=== PATIENT | male | born 1990 | race Caucasian/White ===

== ENCOUNTER 2019-02-06 21:39 | Emergency (ER) | payer OTHER, MEDICAID ==
[2019-02-06] MEDS ORDERED: LEVETIRACETAM 1000 MG/NACL-ISO 1,000 MG/100 ML RTUPB IV ONE (22:14)
[2019-02-06] MEDS ORDERED: DIPH/PERTUSS(ACELL)/TETANUS VAC/PF 0.5 ML SYR (>=10YO) IM ONE (22:18)
[2019-02-06] MEDS ORDERED: METOCLOPRAMIDE HCL INJ/PF 10 MG/2 ML SDV IV ONE (22:20)
--- NOTE | 2019-02-06 22:21 | ER Document Report ---
ED Seizure - General Chief Complaint: Seizure Stated Complaint: SEIZURE Time Seen by Provider: 02/06/19 22:06 Primary Care Provider: [facility] [Provider Group] - Follow up as needed LAURENT BUSTILLO MD [ACTIVE STAFF] - Follow up in 3-5 days Notes: Patient is a 28-year-old male that comes to the emergency department for chief complaint of seizure. Reportedly patient was at work, when outside to take a b reak, and then was noticed by his coworkers to be having a seizure. EMS was called and patient was transported, EMS reported patient to be postictal. Patient admits that he had a seizure on 2 different occasions within the past 2 weeks but he was not evaluated for them at that time. No history of seizures previous to that. He also admits to drinking alcohol daily. Dad is at bedside and states that all morning patient was also throwing up. Patient states he does not remember what happened at work. He reports mild nausea but denies headache. Patient does not have any past medical history reported, takes no daily medications, denies recreational drugs. Patient's tetanus is not up-to-da te on 5 years. - Related Data Allergies/Adverse Reactions: No Known Allergies Allergy (Verified 02/20/16 15:12) Past Medical History - General Information source: Patient, Parent - Social History Smoking Status: Current Every Day Smoker Frequency of alcohol use: Heavy Drug Abuse: None Lives with: Family Family History: Reviewed & Not Pertinent Patient has suicidal ideation: No Patient has homicidal ideation: No - Immunizations Immunizations up to date: Yes Hx Diphtheria, Pertussis, Tetanus Vaccination: Yes Review of Systems - Review of Systems Constitutional: No symptoms reported EENT: No symptoms reported Cardiovascular: No symptoms reported Respiratory: No symptoms reported Gastrointestinal: See HPI Genitourinary: No symptoms reported Male Genitourinary: No symptoms reported Musculoskeletal: See HPI Skin: See HPI Hematologic/Lymphatic: No symptoms reported Neurological/Psychological: See HPI Physical Exam - Vital signs Vitals: Temp Resp BP Pulse Ox 98.1 F 18 158/96 H 96 02/06/19 22:01 02/06/19 22:01 02/06/19 22:01 02/06/19 22:01 - Notes Notes: GENERAL: Alert, interacts well. No acute distress. HEAD: Normocephalic, atraumatic. EYES: Pupils equal, round, and reactive to light. Extraocular movements intact. ENT: Oral mucosa moist, tongue midline with a tiny superficial bite omkar over the left anterior aspect. No current bleeding. Oropharynx unremarkable. Airway patent. Nares patent, no nasal septal hematoma, TM's intact. NECK: Full range of motion. Supple. Trachea midline. LUNGS: Clear to auscultation bilaterally, no wheezes, rales, or rhonchi. No respiratory distress. HEART: Regular rate and rhythm. No murmur ABDOMEN: Soft, non-tender. Non-distended. Bowel sounds present in all 4 quadrants. GENITOURINARY: Deferred EXTREMITIES: Small abrasion over the right elbow and proximal forearm. No severe bony tenderness, no deformity, range of motion at all joints normal, normal distal neurovascular exam and strength. BACK: no cervical, thoracic, lumbar midline tenderness. No saddle anesthesia, normal distal neurovascular exam. NEUROLOGICAL: Alert and oriented x3. Normal speech. Cranial nerves II through XII grossly intact. PSYCH: Normal affect, normal mood. SKIN: Warm, dry, normal turgor. No rashes or lesions noted. Course - Re-evaluation Re-evalutation: 02/06/19 22:35 Patient's EKG is somewhat strange, there are T wave depressions anteriorly and laterally, there are elevated ST segments anteriorly as well. Spoke to Dr. Dubose, he will review the EKG and call back. 02/06/19 23:01 Dr. Dubose has reviewed the EKG image. His only recommendation is outpatient cardiology follow-up with possible stress testing at that point, this does not appear to be Brugada or have any acute abnormality that needs to be assessed at this time. I did discuss this with patient and family, they state they will accept cardiology referral and take him there. CAT scan of the head negative, chest x-ray unremarkable, CBC nonspecific. Alcohol negative. Chemistry shows elevated AST and bilirubin consistent with alcohol abuse, patient has no abdominal pain on evaluation, did not vomit. Patient has been eating and drinking without any difficulty or complaints. Patient is well-appearing on evaluation other than the small laceration of the tongue. His examination is normal otherwise. No additional complaints on reevaluations. Magnesium is low at 1.3, this will be replaced. Patient was given 1000 mg of Keppra IV upon arrival as well. 02/07/19 I had a long conversation with patient and parents. Patient states she has not had alcohol in 48 hours, he denies withdrawal symptoms, he understands that alcohol lowers his seizure threshold and he is much more likely to have one if he continues to drink in addition to discussing how his liver functioning test including LFTs and bilirubin are elevated because of his alcohol abuse. He states that he does not need to be placed in detox and he would prefer to go home. He states he has quit before. Parents are supportive of him and this w ith no alternative suggestion or preference. Patient is not tachycardic, he is alert, smiling, well-appearing, he is not having tremors, he does not appear to be having any withdrawal at this time. As result I do not suspect that his seizure today was from withdrawals. I discussed the patient and disposition with Dr. Lyle. Because patient has had multiple seizures now he will be placed on Keppra, he will be given magnesium supplement, and he will be referred to neurology along with the cardiology referral. Patient already does not drive. Discussed seizure precautions. Discussed return precautions. Patient and mother state understanding and agreement. Stable at time of discharge. - Vital Signs Vital signs: Temp Pulse Resp BP Pulse Ox 98.3 F 15 150/99 H 100 02/07/19 02:19 02/07/19 02:19 02/07/19 02:19 02/07/19 02:19 - Laboratory Result Diagrams: 02/06/19 21:55 02/06/19 21:55 Laboratory results interpreted by me: 02/06/19 02/06/19 21:55 21:55 MCH 33.8 H RDW 14.2 H Plt Count 86 L Lymph % (Auto) 10.5 L Chloride 93 L Calcium 10.7 H Magnesium 1.3 L Total Bilirubin 1.6 H AST 300 H Total Protein 8.9 H Albumin 5.2 H Discharge - Discharge Clinical Impression: Seizure, Hypomagnesemia Elbow contusion Qualifiers: Encounter type: initial encounter Laterality: right Qualified Code(s): S50.01XA - Contusion of right elbow, initial encounter Vomiting Qualifiers: Vomiting type: unspecified Vomiting Intractability: non-intractable Nausea presence: unspecified Qualified Code(s): R11.10 - Vomiting, unspecified Condition: Stable Disposition: HOME, SELF-CARE Additional Instructions: Your CAT scan of the head was normal. Your magnesium has started to be supplemented, take the magnesium as prescribed, take the antiseizure medication, follow-up with the neurology referral listed below, call for your appointment. Your EKG was abnormal today, I spoke with Dr. Bustillo, please see the referral for close follow-up with him as well. You must stop drinking alcohol, this is damaging your body and also makes you much more likely to have a seizure. Consider follow-up with the [facility] referral for assistance in regards to this. Start with bland food, take nausea medication if needed. Return to the emergency department for any concerning or worsening symptoms including repeat seizures, uncontrolled vomiting, or something is not right. Former[facility] [address] [place] [id number] Prescriptions: Levetiracetam [Keppra 500 mg Tablet] 500 mg PO Q12 #60 tablet Magnesium Oxide 250 mg PO DAILY #30 tablet Ondansetron [Zofran Odt 4 mg Tablet] 1 - 2 tab PO Q4H PRN #15 tab.rapdis PRN Reason: For Nausea/Vomiting Forms: Parent Work Note Referrals: LAURENT BUSTILLO MD [ACTIVE STAFF] - Follow up in 3-5 days [facility] [Provider Group] - Follow up as needed
[2019-02-06 22:29] LABS: ALBUMIN 5.2 g/dL (3.5-5.0); ALKALINE PHOSPHATASE 49 U/L (38-126); ANION GAP 17 (5-19); ASPARTATE AMINO TRANSFERASE 300 U/L (17-59); BILIRUBIN,DIRECT 0.3 mg/dL (0.0-0.4); BILIRUBIN,TOTAL 1.6 mg/dL (0.2-1.3); BLOOD UREA NITROGEN 8 mg/dL (7-20); CALCIUM 10.7 mg/dL (8.4-10.2); CARBON DIOXIDE 28 mmol/L (22-30); CHLORIDE 93 mmol/L (98-107); GLUCOSE 110 mg/dL (75-110); POTASSIUM 3.8 mmol/L (3.6-5.0); TOTAL PROTEIN 8.9 g/dL (6.3-8.2)
[2019-02-06 22:30] LABS: ABSOLUTE LYMPHOCYTES (AUTO) 0.5 10^3/uL (0.5-4.7); ABSOLUTE MONOCYTES (AUTO) 0.6 10^3/uL (0.1-1.4); ABSOLUTE NEUT (AUTO) 3.8 10^3/uL (1.7-8.2); BASOPHILS % (AUTO) 0.8 % (0-2); EOSINOPHILS % (AUTO) 0.3 % (0-6); HEMATOCRIT 46.3 % (37.9-51.0); HEMOGLOBIN 16.2 g/dL (13.5-17.0); LYMPHOCYTES % (AUTO) 10.5 % (13-45); MEAN CORPUSCULAR HEMOGLOBIN 33.8 pg (27.0-33.4); MEAN CORPUSCULAR HGB CONC 34.9 g/dL (32.0-36.0); MEAN CORPUSCULAR VOLUME 97 fl (80-97); MONOCYTES % (AUTO) 11.9 % (3-13); RED BLOOD COUNT 4.79 10^6/uL (4.35-5.55); RED CELL DISTRIBUTION WIDTH 14.2 % (11.5-14.0); SEGMENTED NEUTROPHILS % (AUTO) 76.5 % (42-78); TOTAL CELLS COUNTED % (AUTO) 100 %
[2019-02-06 22:51] LABS: PLATELET COUNT 86 10^3/uL (150-450)
--- NOTE | 2019-02-06 23:28 | RADIOLOGY REPORT (SQ) ---
EXAM DESCRIPTION: XR CHEST 1 VIEW COMPLETED DATE/TME: 02/06/2019 22:14 CLINICAL HISTORY: 28 years Male, persistent vomiting, passed out or seizure COMPARISON: None. NUMBER OF VIEWS/TECHNIQUE: 1/AP FINDINGS: Adequate lung volume, clear parenchyma, normal cardiac silhouette, and intact bony thorax. IMPRESSION: No acute cardiopulmonary findings.
--- NOTE | 2019-02-06 23:29 | RADIOLOGY REPORT (SQ) ---
4 VIEWS OF RIGHT ELBOW EXAM DATE: 02/06/2019 10:18 PM CDT HISTORY: fall, injury, pain. COMPARISON: None. FINDINGS: No acute fracture or dislocation is seen. The joint spaces are preserved. The soft tissues are unremarkable. No elbow joint effusion. IMPRESSION: No acute fracture or malalignment.
--- NOTE | 2019-02-07 00:05 | RADIOLOGY REPORT (SQ) ---
EXAM DESCRIPTION: CT HEAD WITHOUT IV CONTRAST COMPLETED DATE/TME: 02/06/2019 22:15 CLINICAL HISTORY: 28 years, Male, new onset seizures COMPARISON: None. TECHNIQUE: Noncontrast CT of the head was performed. Coronal and sagittal reformations were created. Images stored on PACS. All CT scanners at this facility use dose modulation, iterative reconstruction, and/or weight based dosing when appropriate to reduce radiation dose to as low as reasonably achievable (ALARA). [facility]: Dose Right [facility]: CareDose [facility]: Dose Right [facility]: Teradose 4D [facility]: [employer] LIMITATIONS: None. FINDINGS: Brain parenchyma is normal in attenuation. No acute intracranial hemorrhage, mass effect, or extra-axial fluid is seen. The ventricles, sulci, and basilar cisterns are normal in size and configuration. Globes and orbits are normal. Paranasal sinuses and mastoid air cells are clear. There are no depressed skull fractures. IMPRESSION: No acute intracranial abnormality. TECHNICAL DOCUMENTATION: Quality ID # [id number]: Final reports with documentation of one or more dose reduction techniques (e.g., Automated exposure control, adjustment of the mA and/or kV according to patient size, use of iterative reconstruction technique) copyright 2010 [email or web address]- All Rights Reserved
[2019-02-07] MEDS: MAGNESIUM SULFATE/D5W 1 GM/100 ML RTUPB IV SCH ×2 (01:18)
[2019-02-07 02:26] VITALS: BP 150/99
--- NOTE | 2019-02-07 08:01 | EKG REPORT ---
SEVERITY:- ABNORMAL ECG - SINUS RHYTHM ABNORMAL T, CONSIDER ISCHEMIA, DIFFUSE LEADS, NO OLD EKG TO COMPARE, IMPORTANT TO CORRELATE CLINICALL Y !!. : Confirmed by: Vik Chin MD 07-Feb-2019 08:00:23
== END 2019-02-07 02:26 | disposition home or self-care (01) ==
LOC: ER 21:39
DX: R56.9 Unspecified convulsions (principal); S50.01XA Contusion of right elbow, initial encounter; X58.XXXA Exposure to other specified factors, initial encounter; S00.572A Other superficial bite of oral cavity, initial encounter; W50.3XXA Accidental bite by another person, initial encounter; Y99.0 Civilian activity done for income or pay; E83.42 Hypomagnesemia; R74.0 Nonspecific elevation of levels of transaminase and lactic acid dehydrogenase [LDH]; R79.89 Other specified abnormal findings of blood chemistry; R11.10 Vomiting, unspecified; R11.0 Nausea; F17.200 Nicotine dependence, unspecified, uncomplicated
CPT/HCPCS: 93005; 36415; 80307; 83690; 83735; 85025; 80053; 84484; 71045; 73080; 70450; 90715; 93010; J2765; J3475; J1953; 90471; 96365; 96366; 96375; 99285

== ENCOUNTER 2019-03-29 11:44 | Emergency (ER) | payer SELFPAY ==
[2019-03-29] MEDS ORDERED: IBUPROFEN 800 MG TABLET PO ONE (12:12)
--- NOTE | 2019-03-29 12:16 | ER Document Report ---
ED Extremity Problem, Upper - General Chief Complaint: Shoulder Pain Stated Complaint: LEFT SHOULDER PAIN, SWELLING Time Seen by Provider: 03/29/19 12:09 Mode of Arrival: Ambulatory Information source: Patient TRAVEL OUTSIDE OF THE [place] IN LAST 30 DAYS: No - HPI Patient complains to provider of: Injury, Pain, Left, Shoulder Onset: Yesterday Recent injury: Yes Where: Neighbor's Quality of pain: Achy Severity of pain: Moderate Pain Level: 3 Exacerbated by: Movement, Exertion Relieved by: Rest, Positioning Similar symptoms previously: No Recently seen / treated by doctor: Yes - Related Data Allergies/Adverse Reactions: No Known Allergies Allergy (Verified 03/29/19 12:11) Past Medical History - Social History Family History: Reviewed & Not Pertinent - Immunizations Immunizations up to date: Yes Hx Diphtheria, Pertussis, Tetanus Vaccination: Yes Physical Exam - Vital signs Vitals: Temp Pulse BP Pulse Ox 98.5 F 113 H 164/117 H 97 03/29/19 11:49 03/29/19 11:49 03/29/19 11:49 03/29/19 11:49 Course - Vital Signs Vital signs: Temp Pulse Resp BP Pulse Ox 98.5 F 113 H 164/117 H 97 03/29/19 11:49 03/29/19 11:49 03/29/19 11:49 03/29/19 11:49
--- NOTE | 2019-03-29 12:19 | ER Document Report ---
ED Medical Screen (RME) - General Chief Complaint: Blood Pressure Problem Stated Complaint: LEFT SHOULDER PAIN, SWELLING Time Seen by Provider: 03/29/19 12:09 Mode of Arrival: Ambulatory Information source: Patient Notes: 29-year-old male presented to ED for complaint of left shoulder pain unable to move the arm due to the severity of the pain. He states he was helping with her mother yesterday when the pain started then he went to work and has not been able to move his left shoulder since a injury. He is also got a blood pressure of 148/118. He states he did have seizures a month or 2 ago from elevated blood pressure. She does smoke 1/2 pack a day drinks every other day and has a history of a left ankle fracture with surgery. He denies use of any drugs. Patient states he has not followed up with a doctor and has not taken any blood pressure medicine since he had a seizure about a month or 2 ago from his high blood pressure. I have greeted and performed a rapid initial assessment of this patient. A comprehensive ED assessment and evaluation of the patient, analysis of test results and completion of medical decision making process will be conducted by an additional ED providers. TRAVEL OUTSIDE OF THE [place] IN LAST 30 DAYS: No - Related Data Allergies/Adverse Reactions: No Known Allergies Allergy (Verified 03/29/19 12:11) Home Medications: denies Past Medical History - Social History Chew tobacco use (# tins/day): No Frequency of alcohol use: Social Drug Abuse: None - Immunizations Immunizations up to date: Yes Hx Diphtheria, Pertussis, Tetanus Vaccination: Yes Physical Exam - Vital signs Vitals: Temp Pulse BP Pulse Ox 98.5 F 113 H 164/117 H 97 03/29/19 11:49 03/29/19 11:49 03/29/19 11:49 03/29/19 11:49 Course - Vital Signs Vital signs: Temp Pulse Resp BP Pulse Ox 98.5 F 113 H 148/114 H 97 03/29/19 11:49 03/29/19 11:49 03/29/19 12:16 03/29/19 11:49
[2019-03-29] MEDS ORDERED: KETOROLAC TROMETHAMINE INJ/PF 30 MG/1 ML SDV IV ONE (12:49)
[2019-03-29 13:03] LABS: ABSOLUTE BASOPHILS # (AUTO) 0.1 10^3/uL (0.0-0.2); ABSOLUTE MONOCYTES (AUTO) 1.5 10^3/uL (0.1-1.4); ABSOLUTE NEUT (AUTO) 5.6 10^3/uL (1.7-8.2); BASOPHILS % (AUTO) 0.8 % (0-2); EOSINOPHILS % (AUTO) 0.4 % (0-6); HEMATOCRIT 43.6 % (37.9-51.0); HEMOGLOBIN 15.6 g/dL (13.5-17.0); LYMPHOCYTES % (AUTO) 11.9 % (13-45); MEAN CORPUSCULAR HGB CONC 35.8 g/dL (32.0-36.0); MEAN CORPUSCULAR VOLUME 95 fl (80-97); MONOCYTES % (AUTO) 18.5 % (3-13); PLATELET COUNT 101 10^3/uL (150-450); RED BLOOD COUNT 4.58 10^6/uL (4.35-5.55); RED CELL DISTRIBUTION WIDTH 12.9 % (11.5-14.0); SEGMENTED NEUTROPHILS % (AUTO) 68.4 % (42-78); TOTAL CELLS COUNTED % (AUTO) 100 %; WHITE BLOOD COUNT 8.2 10^3/uL (4.0-10.5)
--- NOTE | 2019-03-29 13:03 | RADIOLOGY REPORT (SQ) ---
EXAM DESCRIPTION: SHOULDER LEFT 2 OR MORE VIEWS COMPLETED DATE/TIME: 03/29/2019 12:30 pm REASON FOR STUDY: pain after helping with motor worse with movement COMPARISON: None. NUMBER OF VIEWS: Three views. TECHNIQUE: Internal rotation, external rotation, and Y view images acquired of the left shoulder. LIMITATIONS: None. FINDINGS: MINERALIZATION: Normal. BONES: No acute fracture. No worrisome bone lesions. JOINTS: Anterior inferior dislocation of the humeral head. VISUALIZED LUNGS AND RIBS: No pneumothorax. No rib fracture. SOFT TISSUES: No radiopaque foreign body. OTHER: No other significant finding. IMPRESSION: Shoulder dislocation. TECHNICAL DOCUMENTATION: JOB ID: [id number] [employer]- All Rights Reserved Reading location - IP/workstation name: [email or web address]
[2019-03-29 13:25] LABS: ALBUMIN 4.7 g/dL (3.5-5.0); ALKALINE PHOSPHATASE 37 U/L (38-126); ANION GAP 10 (5-19); ASPARTATE AMINO TRANSFERASE 47 U/L (17-59); BILIRUBIN,DIRECT 0.1 mg/dL (0.0-0.4); BILIRUBIN,TOTAL 1.5 mg/dL (0.2-1.3); BLOOD UREA NITROGEN 8 mg/dL (7-20); CALCIUM 9.9 mg/dL (8.4-10.2); CARBON DIOXIDE 28 mmol/L (22-30); CHLORIDE 97 mmol/L (98-107); GLUCOSE 101 mg/dL (75-110); POTASSIUM 3.5 mmol/L (3.6-5.0); TOTAL PROTEIN 8.2 g/dL (6.3-8.2)
[2019-03-29 13:27] LABS: ALCOHOL < 10 mg/dL (NONE DETECTED)
[2019-03-29] MEDS ORDERED: ETOMIDATE INJ/PF 20 MG/10 ML SDV IV ONE (13:31)
--- NOTE | 2019-03-29 13:36 | ER Document Report ---
ED General - General Chief Complaint: Blood Pressure Problem Stated Complaint: LEFT SHOULDER PAIN, SWELLING Time Seen by Provider: 03/29/19 12:09 Mode of Arrival: Ambulatory TRAVEL OUTSIDE OF THE [place] IN LAST 30 DAYS: No - HPI Notes: Mr. Barnes is a 29-year-old male with a chief complaint of left shoulder injury. Patient says he was helping a family member to hoist a heavy engine yesterday when he injured his left shoulder. He says he drank several beers and took some ibuprofen last night and when he got up this morning he really could not move the shoulder at all without severe pain. He is right-hand dominant. He denies any prior history of injury to the shoulder. Last oral intake was approximately 12 hours prior to arrival here. He reports no history of any problems with general anesthesia. He had a seizure about 1 month ago but is had no recurrence and still has not been to a neurologist for further work-up. He is currently taking no prescription medications. He denies allergies. Denies any illicit drug use. - Related Data Allergies/Adverse Reactions: No Known Allergies Allergy (Verified 03/29/19 12:11) Home Medications: denies Past Medical History - General Information source: Patient - Social History Smoking Status: Current Every Day Smoker Chew tobacco use (# tins/day): No Frequency of alcohol use: Social Drug Abuse: None Family History: Reviewed & Not Pertinent Patient has suicidal ideation: No Patient has homicidal ideation: No - Immunizations Immunizations up to date: Yes Hx Diphtheria, Pertussis, Tetanus Vaccination: Yes Review of Systems - Review of Systems Notes: Constitutional: Negative for fever. HENT: Negative for sore throat. Eyes: Negative for visual changes. Cardiovascular: Negative for chest pain. Respiratory: Negative for shortness of breath. Gastrointestinal: Negative for abdominal pain, vomiting or diarrhea. Genitourinary: Negative for dysuria. Musculoskeletal: As per HPI. Skin: Negative for rash. Neurological: As per HPI. 10 point ROS negative except as marked above and in HPI. Physical Exam - Vital signs Vitals: Temp Pulse BP Pulse Ox 98.5 F 113 H 164/117 H 97 03/29/19 11:49 03/29/19 11:49 03/29/19 11:49 03/29/19 11:49 - Notes Notes: GENERAL: Well-developed well-nourished male appearing approximately stated age. Patient appears in moderate discomfort. Left upper extremity is held close to the body and he is resisting movement. Faint odor of old alcohol present. SKIN: Good turgor no rashes. HEAD: Normocephalic atraumatic. EYES: PERRLA. Conjunctivae and sclerae clear. EARS: CANALS AND TMS CLEAR. NOSE: CLEAR. MOUTH: Moist mucosa. Good dentition. No stridor or edema. No drooling. NECK: Supple. No masses or thyromegaly. No adenopathy. Carotids 2+ without bruits. No JVD. BACK: Symmetrical without tenderness. CHEST: Respirations unlabored. Breath sounds clear and symmetrical. HEART: Regular rhythm. No murmur gallop or rub. ABDOMEN: Soft nontender without masses, organomegaly or rebound. Bowel sounds normally active. No bruits. GENITALIA: Deferred. EXTREMITIES: Resists movement of left shoulder in all planes in the shoulder is tender laterally and anteriorly. Distal neurovascular function is normal. No edema. No calf tenderness. Cap refill less than 1.5 seconds. Dorsalis pedis and posterior tibial pulses 3+ and symmetrical. NEUROLOGICAL: GCS 15. Alert and oriented x3. Normal gait. Fluent speech. Cranial nerves II through XII intact. Sensorimotor and cerebellar normal. Normal tone. Course - Re-evaluation Re-evalutation: Anterior shoulder dislocation was confirmed. Shoulder was reduced under procedural sedation without complications. Unfortunately this patient's blood pressure was very high prior to the procedure and despite administration of appropriate analgesics remained very elevated following the procedure. Review of prior records showed that he had had quite elevated blood pressure on his earlier ED visit fairly recently. His drug screen was negative. He has no evidence of endorgan damage related to his hypertension. His family history is however strongly positive for severe hypertensive disease. I brought his blood pressure down to reasonable level and he is feeling well at this time. I think he is stable for outpatient follow-up abdomen to go ahead and start him on oral antihypertensive therapy in addition to providing analgesics at home and referral to orthopedics for follow-up of the shoulder. 03/29/19 18:35 - Vital Signs Vital signs: Temp Pulse Resp BP Pulse Ox 98.5 F 82 22 H 157/121 H 98 03/29/19 11:49 03/29/19 14:46 03/29/19 18:11 03/29/19 18:11 03/29/19 18:06 - Laboratory Result Diagrams: 03/29/19 12:51 03/29/19 12:51 Laboratory results interpreted by me: 03/29/19 03/29/19 03/29/19 12:51 12:51 16:35 MCH 34.0 H Plt Count 101 L Lymph % (Auto) 11.9 L [place] % (Auto) 18.5 H Absolute Monos (auto) 1.5 H Sodium 134.8 L Potassium 3.5 L Chloride 97 L Total Bilirubin 1.5 H Alkaline Phosphatase 37 L Urine Protein 100 H Urine Blood SMALL H Urine Urobilinogen 4.0 H Procedures - Conscious Sedation Conscious sedation Time started: 14:28 Time completed: 14:48 Consent obtained: Yes Indication: Anterior shoulder dislocation Last meal: 12 hours Prior complications: Other - None ASA Classification: Choose one classification Emergent conditions applies.: E. - ASA Classification Pt with a mild systemic disease.: P2. - ASA Classification. - Uncontrolled hypertension Airway Evaluation: Normal anatomy Mallampati Classification: Class 2 Used during procedure: Suction available, IV access obtained, Pulse ox on pt., energy attorney on pt., Other - End-tidal CO2 monitor Medications administered: Etomidate Reversal agents: None I personally performed/intraservice time: Sedation, 30 min or less Complications: No - Joint Reduction/Fracture Care Left Shoulder Time completed: 14:48 Consent obtained: Yes Conscious sedation: Yes - IV Etomidate Pre-procedure NV exam: Yes - normal Manipulation comment: Traction/Countertraction Post-procedure NV exam: Yes - Normal Post-reduction x-ray: Joint reduced Reduction attempts: 1 Complications: No Critical Care Note - Critical Care Note Total time excluding time spent on procedures (mins): 60 Comments: Very elevated blood pressure. Received several doses of IV metoprolol and hydralazine. Urine drug screen was NEGATIVE for cocaine. Discharge - Discharge Clinical Impression: Essential hypertension, Asymptomatic hypertensive urgency Anterior shoulder dislocation Qualifiers: Encounter type: initial encounter Laterality: left Qualified Code(s): S43.015A - Anterior dislocation of left humerus, initial encounter Condition: Stable Disposition: HOME, SELF-CARE Additional Instructions: Take prescribed medication as directed. Avoid any lifting with the left upper extremity. Wear the shoulder immobilizer on the left upper extremity until you are evaluated by referral technical specialist cytogenetics. Return here as needed for new or worsening symptoms. Prescriptions: Oxycodone HCl/Acetaminophen [Percocet 5-325 mg Tablet] 1 - 2 tab PO Q4H PRN 7 Days #20 tablet PRN Reason: Lisinopril/Hydrochlorothiazide [Zestoretic 10-12.5 mg Tablet] 1 tab PO DAILY #30 tablet Forms: Elevated Blood Pressure Referrals: JAYSON CHOWDHURY MD [ACTIVE STAFF] - Follow up as needed
[2019-03-29] MEDS ORDERED: LABETALOL HCL INJ 20 MG/4 ML DISP.SYRIN IV ONE ×2 (13:56→15:45)
--- NOTE | 2019-03-29 15:10 | RADIOLOGY REPORT (SQ) ---
EXAM DESCRIPTION: SHOULDER LEFT 1 VIEW COMPLETED DATE/TIME: 03/29/2019 2:58 pm REASON FOR STUDY: post reduction COMPARISON: Left shoulder three views 03/29/2019 NUMBER OF VIEWS: AP view TECHNIQUE: Internal rotation, external rotation, and Y view images acquired of the left shoulder. LIMITATIONS: None. FINDINGS: AP view left shoulder demonstrates no acute fracture. Grossly normal alignment at the gle nohumeral joint and AC joint. Left upper ribs intact. IMPRESSION: Post closed reduction left anterior humeral head dislocation. Grossly normal alignment on single AP view. No fracture TECHNICAL DOCUMENTATION: JOB ID: [id number] [employer]- All Rights Reserved Reading location - IP/workstation name: [email or web address]
[2019-03-29 16:56] LABS: APPEARANCE,URINE SLIGHTLY-CLOUDY; BILIRUBIN,URINE NEGATIVE (NEGATIVE); COLOR,URINE YELLOW; GLUCOSE, URINE NEGATIVE (NEGATIVE); KETONES,URINE NEGATIVE (NEGATIVE); PROTEIN,URINE 100 mg/dL (NEGATIVE); URINE SPECIFIC GRAVITY 1.019
[2019-03-29 17:20] LABS: URINE AMPHETAMINES SCREEN NEGATIVE; URINE BARBITURATES SCREEN NEGATIVE; URINE BENZODIAZEPINES SCREEN NEGATIVE; URINE COCAINE SCREEN NEGATIVE; URINE MARIJUANA (THC) SCREEN NEGATIVE; URINE METHADONE SCREEN NEGATIVE; URINE PHENCYCLIDINE SCREEN NEGATIVE
[2019-03-29] MEDS ORDERED: HYDRALAZINE HCL INJ/PF 20 MG/1 ML SDV IV ONE (17:31)
[2019-03-29 18:50] VITALS: BP 155/121
[2019-03-29] MEDS ORDERED: HYDROCODONE/ACETAMINOPHEN 5-325 MG (6 TAB/ER DISP) PO PRN (18:58)
--- NOTE | 2019-03-30 12:14 | EKG REPORT ---
SEVERITY:- OTHERWISE NORMAL ECG - SINUS TACHYCARDIA LVH : Confirmed by: Dennise Santos 30-Mar-2019 12:13:17
== END 2019-03-29 19:06 | disposition home or self-care (01) ==
LOC: ER 11:44
PROC: 0RSKXZZ Reposition Left Shoulder Joint, External Approach (ICD-10-PCS; principal; 2019-03-29)
DX: S43.015A Anterior dislocation of left humerus, initial encounter (principal); I16.0 Hypertensive urgency; M25.512 Pain in left shoulder; I10 Essential (primary) hypertension; M79.89 Other specified soft tissue disorders; X50.0XXA Overexertion from strenuous movement or load, initial encounter; F17.200 Nicotine dependence, unspecified, uncomplicated
CPT/HCPCS: 93005; 96376; 99285; 99152; 96374; 96375; 36415; 80307 ×2; 85025; 80053; 81001; 84484; 73020; 73030; 93010; 23650; L3650; J0360; J3490 ×2; J1885

== ENCOUNTER 2019-06-20 20:43 | Emergency (ER) | payer OTHER ==
[2019-06-20 20:59] VITALS: BP 160/104
[2019-06-20] MEDS ORDERED: METHOCARBAMOL 750 MG TABLET PO ONE (22:00)
[2019-06-20] MEDS ORDERED: IBUPROFEN 600 MG TABLET PO ONE (22:02)
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
== END 2019-06-20 23:33 | disposition home or self-care (01) ==
LOC: ER 20:43
DX: M54.2 Cervicalgia (principal); M54.9 Dorsalgia, unspecified; V49.60XA Unspecified car occupant injured in collision with unspecified motor vehicles in traffic accident, initial encounter; F17.200 Nicotine dependence, unspecified, uncomplicated
CPT/HCPCS: 99283; J3490

== ENCOUNTER 2019-11-07 10:42 | Emergency (ER) | payer SELFPAY ==
[2019-11-07 10:49] VITALS: BP 149/91
[2019-11-07] MEDS ORDERED: HYDROCODONE/ACETAMINOPHEN 5-325 MG TABLET PO ONE (11:04)
--- NOTE | 2019-11-07 11:06 | ER Document Report ---
HPI - HPI Patient complains to provider of: left shoulder pain Time Seen by Provider: 11/07/19 10:55 Onset: Other - 4 days Onset/Duration: Persistent Quality of pain: Achy Pain Level: 3 Context: Patient states he was holding a pizza dough tray with his left arm and attempting to grab an additional tray with the right, the tray slipped and he felt his shoulder pull. Patient complains of pain with range of motion. Patient is right-hand dominant. Injury occurred 4 days ago. Exacerbated by: Movement Relieved by: Denies Similar symptoms previously: No Recently seen / treated by doctor: No - ROS ROS below otherwise negative: Yes Systems Reviewed and Negative: Yes All other systems reviewed and negative - CONSTITUTIONAL Constitutional: DENIES: Fever - GASTROINTESTINAL Gastrointestinal: DENIES: Nausea - MUSCULOSKELETAL Musculoskeletal: REPORTS: Extremity pain - left shoulder - DERM Skin Color: Normal Skin Problems: None Past Medical History - General Information source: Patient - Social History Smoking Status: Current Every Day Smoker Chew tobacco use (# tins/day): No Frequency of alcohol use: Social Drug Abuse: None Occupation: fresh foods technician Family History: Reviewed & Not Pertinent Patient has homicidal ideation: No - Medical History Medical History: Negative Past Surgical History: Reports: Hx Orthopedic Surgery - Immunizations Immunizations up to date: Yes Hx Diphtheria, Pertussis, Tetanus Vaccination: Yes Vertical Provider Document - CONSTITUTIONAL Agree With Documented VS: Yes - Heart rate 102 Exam Limitations: No Limitations General Appearance: WD/WN, No Apparent Distress - INFECTION CONTROL TRAVEL OUTSIDE OF THE [place] IN LAST 30 DAYS: No - HEENT HEENT: Atraumatic, Normocephalic - NECK Neck: Normal Inspection, Supple - RESPIRATORY Respiratory: Breath Sounds Normal, No Respiratory Distress - CARDIOVASCULAR Cardiovascular: Regular Rhythm, No Murmur, Tachycardia Pulses: Normal: Radial - MUSCULOSKELETAL/EXTREMETIES Musculoskeletal/Extremeties: MAEW, FROM - Full passive range of motion, Tender - Tenderness to anterior and superior aspect of humeral head, no shoulder dislocation or deformity, tenderness increases with abduction and extension - NEURO Level of Consciousness: Awake, Alert, Appropriate Motor/Sensory: No Motor Deficit, No Sensory Deficit - DERM Integumentary: Warm, Dry, No Rash Course - Re-evaluation Re-evalutation: 11/07/19 11:06 Suspect likely soft tissue shoulder injury, no concern for fracture or dislocation at this time. Patient encouraged to follow-up with Workmen's Compensation provider and orthopedics for further management. - Vital Signs Vital signs: Temp Pulse Resp BP Pulse Ox 98.8 F 118 H 18 149/91 H 96 11/07/19 10:53 11/07/19 10:46 11/07/19 10:46 11/07/19 10:46 11/07/19 10:46 Procedures - Immobilization Left Shoulder Pre-Proc Neuro Vasc Exam: Normal Immobilizer type: Shoulder immobilizer Performed by: RN Post-Proc Neuro Vasc Exam: Normal Alignment checked and good: Yes Discharge - Discharge Clinical Impression: Sprain of left shoulder Qualifiers: Encounter type: initial encounter Shoulder sprain type: unspecified sprain Qualified Code(s): S43.402A - Unspecified sprain of left shoulder joint, initial encounter Condition: Stable Disposition: HOME, SELF-CARE Instructions: Oral Narcotic Medication ([facility]), Shoulder Injury ([facility]), Sling as Treatment ([facility]) Additional Instructions: Return immediately for any new or worsening symptoms Followup with your primary care provider, call tomorrow to make a followup appointment Perform gentle range of motion exercises daily Follow-up with your Workmen's Compensation provider Follow-up with orthopedics for further management, call today for an appointment Prescriptions: Lidocaine [Lidoderm 5% (700 mg) Transdermal Patch] 1 patch TP DAILY PRN #10 adh..patch PRN Reason: Naproxen [Naprosyn 250 Nmg Tablet] 1 tab PO BID #14 tablet Hydrocodone/Acetaminophen [[place] 5-325 mg Tablet] 1 tab PO Q6 PRN #6 tablet PRN Reason: Forms: Return to Work Referrals: [facility] [Provider Group] - Follow up as needed [facility] [Provider Group] - Follow up as needed SARAHI BE MD [ACTIVE PROVISIONAL STAFF] - Follow up as needed
== END 2019-11-07 11:12 | disposition home or self-care (01) ==
LOC: ER 10:42
DX: S43.402A Unspecified sprain of left shoulder joint, initial encounter (principal); M25.512 Pain in left shoulder; R00.0 Tachycardia, unspecified; X50.9XXA Other and unspecified overexertion or strenuous movements or postures, initial encounter; F17.200 Nicotine dependence, unspecified, uncomplicated
CPT/HCPCS: 99283

== ENCOUNTER 2019-11-12 12:05 | Emergency (ER) | payer SELFPAY ==
--- NOTE | 2019-11-12 12:55 | ER Document Report ---
HPI - HPI Time Seen by Provider: 11/12/19 12:41 Pain Level: 4 - REPRODUCTIVE Reproductive: DENIES: : - MUSCULOSKELETAL Musculoskeletal: REPORTS: Extremity pain Past Medical History - Social History Smoking Status: Current Every Day Smoker Chew tobacco use (# tins/day): No Frequency of alcohol use: Social Drug Abuse: None Family History: Reviewed & Not Pertinent Patient has homicidal ideation: No Past Surgical History: Reports: Hx Orthopedic Surgery - Immunizations Immunizations up to date: Yes Hx Diphtheria, Pertussis, Tetanus Vaccination: Yes Vertical Provider Document - INFECTION CONTROL TRAVEL OUTSIDE OF THE [place] IN LAST 30 DAYS: No Course - Vital Signs Vital signs: Temp Pulse Resp BP Pulse Ox 98.7 F 120 H 18 162/109 H 96 11/12/19 12:15 11/12/19 12:15 11/12/19 12:15 11/12/19 12:15 11/12/19 12:15
--- NOTE | 2019-11-12 13:03 | ER Document Report ---
ED Medical Screen (RME) - General Chief Complaint: Shoulder Injury Stated Complaint: SHOULDER INJURY Time Seen by Provider: 11/12/19 12:41 Notes: Patient is a 29-year-old male who presents emergency department chief complaint of left shoulder pain. Patient reports he was seen here recently for left shoulder injury. He states that he feels like his shoulder is dislocated as this has occurred in the past. Patient reports he feels like his left arm is slightly shorter than the right. TRAVEL OUTSIDE OF THE [place] IN LAST 30 DAYS: No - Related Data Allergies/Adverse Reactions: No Known Allergies Allergy (Verified 11/12/19 12:40) Past Medical History - Social History Chew tobacco use (# tins/day): No Frequency of alcohol use: Social Drug Abuse: None Past Surgical History: Reports: Hx Orthopedic Surgery - Immunizations Immunizations up to date: Yes Hx Diphtheria, Pertussis, Tetanus Vaccination: Yes Physical Exam - Vital signs Vitals: Temp Pulse Resp BP Pulse Ox 98.7 F 120 H 18 162/109 H 96 11/12/19 12:15 11/12/19 12:15 11/12/19 12:15 11/12/19 12:15 11/12/19 12:15 Course - Re-evaluation Re-evalutation: 11/12/19 13:02 Patient has tenderness to the anterior left shoulder. There is no obvious d eformity. Left arm is in a sling. Order an x-ray. Patient heart rate is 120 and the patient is hypertensive. Will obtain basic labs. Patient does not have a history of high blood pressure or tachycardia. In previous visit the patient's heart rate was 118. I have greeted and performed a rapid initial assessment of this patient. A comprehensive ED assessment and evaluation of the patient, analysis of test results and completion of the medical decision making process will be conducted by additional ED providers. - Vital Signs Vital signs: Temp Pulse Resp BP Pulse Ox 98.7 F 120 H 18 162/109 H 96 11/12/19 12:15 11/12/19 12:15 11/12/19 12:15 11/12/19 12:15 11/12/19 12:15
[2019-11-12 13:22] LABS: ABSOLUTE BASOPHILS # (AUTO) 0.1 10^3/uL (0.0-0.2); ABSOLUTE NEUT (AUTO) 2.4 10^3/uL (1.7-8.2); MEAN CORPUSCULAR HGB CONC 35.8 g/dL (32.0-36.0); TOTAL CELLS COUNTED % (AUTO) 100 %
[2019-11-12 13:27] LABS: ABSOLUTE LYMPHOCYTES (AUTO) 1.7 10^3/uL (0.5-4.7); ABSOLUTE MONOCYTES (AUTO) 0.6 10^3/uL (0.1-1.4); BASOPHILS % (AUTO) 2.4 % (0-2); EOSINOPHILS % (AUTO) 0.6 % (0-6); HEMATOCRIT 41.1 % (37.9-51.0); HEMOGLOBIN 14.7 g/dL (13.5-17.0); LYMPHOCYTES % (AUTO) 34.5 % (13-45); MEAN CORPUSCULAR HEMOGLOBIN 33.4 pg (27.0-33.4); MEAN CORPUSCULAR VOLUME 93 fl (80-97); MONOCYTES % (AUTO) 13.1 % (3-13); PLATELET COUNT 236 10^3/uL (150-450); RED CELL DISTRIBUTION WIDTH 13.7 % (11.5-14.0); SEGMENTED NEUTROPHILS % (AUTO) 49.4 % (42-78); WHITE BLOOD COUNT 4.9 10^3/uL (4.0-10.5)
[2019-11-12 13:44] LABS: ALBUMIN 4.9 g/dL (3.5-5.0); ALKALINE PHOSPHATASE 45 U/L (38-126); ANION GAP 10 (5-19); ASPARTATE AMINO TRANSFERASE 43 U/L (17-59); BILIRUBIN,TOTAL 0.4 mg/dL (0.2-1.3); BLOOD UREA NITROGEN 13 mg/dL (7-20); CALCIUM 9.9 mg/dL (8.4-10.2); CARBON DIOXIDE 30 mmol/L (22-30); CHLORIDE 105 mmol/L (98-107); GLUCOSE 100 mg/dL (75-110); POTASSIUM 3.9 mmol/L (3.6-5.0); TOTAL PROTEIN 8.3 g/dL (6.3-8.2)
--- NOTE | 2019-11-12 14:16 | RADIOLOGY REPORT (SQ) ---
EXAM DESCRIPTION: SHOULDER LEFT 2 OR MORE VIEWS IMAGES COMPLETED DATE/TIME: 11/12/2019 1:15 pm REASON FOR STUDY: Injury x 2 weeks ago, anterior shoulder pain COMPARISON: 05/29/2018 NUMBER OF VIEWS: Three views. TECHNIQUE: Internal rotation, external rotation, and Y view images acquired of the left shoulder. LIMITATIONS: None. FINDINGS: MINERALIZATION: Normal. BONES: No acute fracture. No worrisome bone lesions. JOINTS: No dislocation. VISUALIZED LUNGS AND RIBS: No pneumothorax. No rib fracture. SOFT TISSUES: No radiopaque foreign body. OTHER: No other significant finding. IMPRESSION: 1. No acute osseous findings. TECHNICAL DOCUMENTATION: JOB ID: [id number] 2010 [employer]- All Rights Reserved Reading location - IP/workstation name: [email or web address]
--- NOTE | 2019-11-12 16:52 | ER Document Report ---
ED Extremity Problem, Upper - General Chief Complaint: Shoulder Injury Stated Complaint: SHOULDER INJURY Time Seen by Provider: 11/12/19 12:41 Primary Care Provider: GOPI GLASS DO [ACTIVE STAFF] - Follow up as needed Mode of Arrival: Ambulatory Information source: Patient Notes: 29-year-old male no previous medical problems presents to the emergency room complaining of worsening left shoulder pain for the past week. Patient injured his shoulder a week ago at work while moving some dough. Patient was seen in the emergency room he was concerned about a possible dislocated shoulder. Patient had a negative x-ray. Was referred to follow-up with Worker's Comp. through his employer which he has not done. Patient states that he still feels like it is not in place. States he dislocated it approximately 2 months ago. States is not taking anything for pain. Patient is right-handed. He denies any new trauma or injury to his shoulder. States is better when he keeps it in the sling. TRAVEL OUTSIDE OF THE [place] IN LAST 30 DAYS: No - Related Data Allergies/Adverse Reactions: No Known Allergies Allergy (Verified 11/12/19 12:40) Past Medical History - General Information source: Patient - Social History Smoking Status: Current Every Day Smoker Chew tobacco use (# tins/day): No Frequency of alcohol use: Social Drug Abuse: None Family History: Reviewed & Not Pertinent Patient has homicidal ideation: No Past Surgical History: Reports: Hx Orthopedic Surgery - Immunizations Immunizations up to date: Yes Hx Diphtheria, Pertussis, Tetanus Vaccination: Yes Review of Systems - Review of Systems Constitutional: No symptoms reported Cardiovascular: No symptoms reported Respiratory: No symptoms reported Gastrointestinal: No symptoms reported Musculoskeletal: Joint pain Skin: No symptoms reported Neurological/Psychological: No symptoms reported -: Yes All other systems reviewed and negative Physical Exam - Vital signs Vitals: Temp Pulse Resp BP Pulse Ox 98.7 F 120 H 18 162/109 H 96 11/12/19 12:15 11/12/19 12:15 11/12/19 12:15 11/12/19 12:15 11/12/19 12:15 - General General appearance: Appears well, Alert In distress: Mild - Respiratory Respiratory status: No respiratory distress Chest status: Nontender Breath sounds: Normal Chest palpation: Normal - Cardiovascular Rhythm: Regular Heart sounds: Normal auscultation Murmur: No - Extremities General upper extremity: Tender - Tenderness on the left anterior shoulder reg ion. Positive impingement. Full range of motion with abduction and adduction of the left shoulder. No obvious deformity noted., Normal color, Normal temperature General lower extremity: Normal inspection, Nontender, Normal color, Normal ROM, Normal temperature, Normal weight bearing. 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 Capillary refill less than 3 seconds. Neurovascularly intact. - Skin Skin Temperature: Warm Skin Moisture: Dry Skin Color: Normal Course - Re-evaluation Re-evalutation: 11/12/19 17:11 Patient is resting comfortably states he is pain-free unless he tries to move his shoulder. Reviewed lab, EKG, x-ray results with patient. Patient was counseled that he needs to follow-up through Worker's Comp. for his persistent shoulder pain as he injured his shoulder at work last week. Patient said he did file up with his employer but he has not seen anybody for Worker's Comp. as of yet. He was told he needs to call tomorrow to set up an appointment. He can take Tylenol and or Motrin as needed for pain. Counseled to wear sling until seen by Worker's Comp. provider. Patient was also counseled on need to follow- up outpatient with a primary care physician for his elevated blood pressure. He is asymptomatic with his elevated blood pressure. He denies chest pain, shortness of breath, no difficulty breathing. Patient was given strict return to the emergency room guidelines. Return for any new or worsening symptoms. All questions were answered. Patient verbalized understanding and agrees with plan of care. 11/12/19 18:38 - Vital Signs Vital signs: Temp Pulse Resp BP Pulse Ox 97.7 F 96 18 142/109 H 97 11/12/19 17:35 11/12/19 17:35 11/12/19 17:35 11/12/19 17:35 11/12/19 17:35 - Laboratory Result Diagrams: 11/12/19 13:05 11/12/19 13:05 Laboratory results interpreted by me: 11/12/19 11/12/19 13:05 13:05 Person % (Auto) 13.1 H Baso % (Auto) 2.4 H Total Protein 8.3 H - Diagnostic Test Radiology reviewed: Reports reviewed - EKG Interpretation by Me Rate: Tachycardia Additional EKG results interpreted by me: 11/12/19 16:51 EKG was seen and interpreted by ER physician Dr. Davis Sinus tachycardia, No acute STEMI Discharge - Discharge Clinical Impression: Elevated blood pressure reading without diagnosis of hypertension Left shoulder pain Qualifiers: Chronicity: chronic Qualified Code(s): M25.512 - Pain in left shoulder Condition: Stable Disposition: HOME, SELF-CARE Instructions: Exercise Program for the Shoulder ([facility]), Shoulder Injury ([facility]), Sling as Treatment ([facility]) Additional Instructions: Take Tylenol and or Motrin as needed for pain. Outpatient follow-up with Worker's Comp. through your employer as discussed. Wear sling until seen by Worker's Comp. provider. You need to follow-up outpatient with her primary care physician for elevated blood pressure. Return to the emergency room for any new or worsening symptoms. Forms: Elevated Blood Pressure Referrals: GOPI GLASS, [ACTIVE STAFF] - Follow up as needed
[2019-11-12 17:35] VITALS: BP 142/109
--- NOTE | 2019-11-13 14:32 | EKG REPORT ---
SEVERITY:- BORDERLINE ECG - SINUS TACHYCARDIA BORDERLINE T ABNORMALITIES, INFERIOR LEADS : Confirmed by: Nikita Dunlap MD 13-Nov-2019 14:31:25
== END 2019-11-12 17:35 | disposition home or self-care (01) ==
LOC: ER 12:05
DX: M25.512 Pain in left shoulder (principal); R03.0 Elevated blood-pressure reading, without diagnosis of hypertension; F17.200 Nicotine dependence, unspecified, uncomplicated
CPT/HCPCS: 36415; 80053; 85025; 93005; 93010; 99283

== ENCOUNTER 2019-11-14 21:33 | Emergency (ER) | payer SELFPAY ==
[2019-11-14 21:59] VITALS: BP 160/108
== END 2019-11-14 23:29 | disposition left against medical advice (07) ==
LOC: ER 21:33
DX: Z53.21 Procedure and treatment not carried out due to patient leaving prior to being seen by health care provider (principal)